=== PATIENT | female | born 1990 | race Caucasian/White ===

== ENCOUNTER → 2016-08-20 | Outpatient (CLI) | payer BC | END | disposition home or self-care (01) | LOC: LABWHC1 08:24 | PROVIDERS: ATTEND Psychiatry & Neurology Neurology | DX: G40.209 Localization-related (focal) (partial) symptomatic epilepsy and epileptic syndromes with complex partial seizures, not intractable, without status epilepticus (principal) | CPT/HCPCS: 36415; 80183 ==

== ENCOUNTER → 2017-11-09 | Outpatient (CLI) | payer BC | LOC: LABWHC1 11:44 | PROVIDERS: ATTEND Psychiatry & Neurology Neurology | DX: G40.209 Localization-related (focal) (partial) symptomatic epilepsy and epileptic syndromes with complex partial seizures, not intractable, without status epilepticus (principal) | CPT/HCPCS: 36415; 80183 ==

== ENCOUNTER → 2020-07-30 | Outpatient (CLI) | payer BC ==
[2020-07-30 14:51] LABS: Basophils # (A) 0 X 10*3/uL (0.00-0.10); Basophils % (A) 0 %; Eosinophils # (A) 0 X 10*3/uL (0.04-0.35); Eosinophils % (A) 0 %; HCT 40.2 % (37.2-46.3); HGB 13.3 g/dL (12.0-15.0); Lymphocytes # (A) 0.97 X 10*3/uL (0.90-5.00); Lymphocytes % (A) 31.1 %; MCHC 33.1 g/dL (32.0-37.0); MCV 93.7 fL (80.0-97.0); Mean Platelet Volume 11.5 fL (9.5-12.2); Monocytes % (A) 9.6 %; Neutrophils # (A) 1.85 X 10*3/uL (1.80-7.70); Neutrophils % (A) 59.3 %; Platelet Count 213 X 10*3/uL (140-440); RBC 4.29 X 10*6/uL (4.10-5.20); RDW 12.8 % (11.5-14.5); WBC 3.12 X 10*3/uL (4.50-10.00)
[2020-07-30 15:07] LABS: African American GFR (CKD) 141.8 (60.0-200.0); Anion Gap 6.3 mmol/L (4.00-12.00); BUN/Creat Ratio 13.33 Ratio (12.00-20.00); Calcium 8.7 mg/dL (8.7-10.3); Carbon Dioxide 25.7 mmol/L (21.6-31.8); Non-African American GFR(CKD) 122.3 (60.0-200.0)
== END | disposition home or self-care (01) ==
LOC: LABWHC1 10:09
PROVIDERS: ATTEND Psychiatry & Neurology Neurology
DX: G40.209 Localization-related (focal) (partial) symptomatic epilepsy and epileptic syndromes with complex partial seizures, not intractable, without status epilepticus (principal)
CPT/HCPCS: 36415; 80048; 80183; 85025

== ENCOUNTER → 2020-10-20 | Outpatient (CLI) | payer BC ==
[2020-10-20 09:27] LABS: Basophils % (A) 0 %; Eosinophils % (A) 0 %; HCT 41.6 % (34.0-46.0); HGB 14.3 gm/dL (11.4-16.0); Lymphocytes % (A) 34 %; MCH 32.4 pg (25.0-35.0); MCHC 34.5 g/dL (31.0-37.0); MCV 94.2 fL (80.0-100.0); Mean Platelet Volume 8.5; Monocytes # (A) 0.2 k/uL (0-1.0); Monocytes % (A) 6 %; Neutrophils # (A) 1.8 k/uL (1.3-7.7); Neutrophils % (A) 58 %; Platelet Count 200 k/uL (150-450); RBC 4.42 m/uL (3.80-5.40); RDW 13.1 % (11.5-15.5); WBC 3.1 k/uL (3.8-10.6)
[2020-10-20 12:12] LABS: Anisocytosis (M) Present; Poikilocytosis (M) Present
[2020-10-20 18:02] LABS: African American GFR (CKD) 134.7 (60.0-200.0); Albumin 4.6 g/dL (3.80-4.90); Albumin/Globulin Ratio 2.09 (1.60-3.17); Anion Gap 7.5 mmol/L (4.00-12.00); BUN/Creat Ratio 15.71 Ratio (12.00-20.00); Calcium 8.9 mg/dL (8.7-10.3); Carbon Dioxide 23.5 mmol/L (21.6-31.8); Globulin 2.2 g/dL (1.6-3.3); Non-African American GFR(CKD) 116.3 (60.0-200.0); Protein, Total 6.8 g/dL (6.2-8.2); Total Bilirubin 0.4 mg/dL (0.3-1.2); Total Protein 6.8 g/dL (6.2-8.2)
[2020-10-22 16:44] LABS: Albumin 4.25 g/dL (3.80-4.90); Gamma Globulin 0.82 g/dL (0.70-1.50)
== END | disposition home or self-care (01) ==
LOC: LABWHC1 08:28
PROVIDERS: ATTEND Internal Medicine Hematology & Oncology
DX: D72.819 Decreased white blood cell count, unspecified (principal)
CPT/HCPCS: 36415; 80053; 82607; 84165; 85025; 86334

== ENCOUNTER → 2020-10-25 | Outpatient (CLI) | payer BC | END | disposition home or self-care (01) | LOC: LABWHC1 08:40 | PROVIDERS: ATTEND Internal Medicine Hematology & Oncology | DX: Z53.9 Procedure and treatment not carried out, unspecified reason (principal) ==

== ENCOUNTER → 2020-11-10 | Outpatient (CLI) | payer BC | END | disposition home or self-care (01) | LOC: LABWHC1 09:46 | PROVIDERS: ATTEND Student in an Organized Health Care Education/Training Program | DX: G40.219 Localization-related (focal) (partial) symptomatic epilepsy and epileptic syndromes with complex partial seizures, intractable, without status epilepticus (principal) | CPT/HCPCS: 36415; 80175 ==

== ENCOUNTER → 2021-02-07 | Outpatient (CLI) | payer BC ==
[2021-02-07 14:53] LABS: African American GFR (CKD) 141.8 (60.0-200.0); Anion Gap 10.4 mmol/L (10.00-18.00); BUN/Creat Ratio 7.83 Ratio (12.00-20.00); Blood Urea Nitrogen 4.7 mg/dL (9.0-27.0); Calcium 9.4 mg/dL (8.7-10.3); Carbon Dioxide 22.6 mmol/L (20.0-27.5); Non-African American GFR(CKD) 122.3 (60.0-200.0); Potassium 3.8 mmol/L (3.5-5.5)
[2021-02-07 15:05] LABS: Basophils # (A) 0 X 10*3/uL (0.00-0.10); Basophils % (A) 0 %; Eosinophils # (A) 0.01 X 10*3/uL (0.04-0.35); Eosinophils % (A) 0.2 %; HCT 40.2 % (37.2-46.3); HGB 13.3 g/dL (12.0-15.0); Lymphocytes # (A) 1.14 X 10*3/uL (0.90-5.00); Lymphocytes % (A) 26.2 %; MCHC 33.1 g/dL (32.0-37.0); MCV 93.7 fL (80.0-97.0); Mean Platelet Volume 11.9 fL (9.5-12.2); Monocytes # (A) 0.34 X 10*3/uL (0.20-1.00); Monocytes % (A) 7.8 %; Neutrophils # (A) 2.84 X 10*3/uL (1.80-7.70); Neutrophils % (A) 65.3 %; Platelet Count 208 X 10*3/uL (140-440); RBC 4.29 X 10*6/uL (4.10-5.20); RDW 12.6 % (11.5-14.5); WBC 4.35 X 10*3/uL (4.50-10.00)
== END | disposition home or self-care (01) ==
LOC: LABWHC1 09:16
PROVIDERS: ATTEND Psychiatry & Neurology Neurology
DX: G40.209 Localization-related (focal) (partial) symptomatic epilepsy and epileptic syndromes with complex partial seizures, not intractable, without status epilepticus (principal)
CPT/HCPCS: 36415; 80048; 80183; 85025

== ENCOUNTER → 2021-03-20 | Outpatient (CLI) | payer BC | END | disposition home or self-care (01) | LOC: LABWHC1 16:22 | PROVIDERS: ATTEND Obstetrics & Gynecology Obstetrics | DX: O99.350 Diseases of the nervous system complicating pregnancy, unspecified trimester (principal); G40.909 Epilepsy, unspecified, not intractable, without status epilepticus; Z3A.00 Weeks of gestation of pregnancy not specified | CPT/HCPCS: 36415; 82105; 82677; 84702; 86336 ==

== ENCOUNTER 2021-08-26 10:49 | Outpatient (CLI) | payer BC ==
[2021-08-26 13:19] VITALS: BP 127/74; PULSE 102; RESP 17; TEMP 97.1
--- NOTE | 2021-08-30 10:03 | P.MSEPDOC ---
Presenting Problems - Arrival Data Date of Arrival on Unit: 08/26/21 Time of Arrival on Unit: 10:49 Mode of Transport: Ambulatory - Complaint OB-Reason for Admission/Chief Complaint: Possible Onset of Labor Comment: pt presents for cramping, spotting, and back pain Medical History - Information : 1 Para: 0 Term: 0 : 0 Abortions: Spontaneous or Elective: 0 Number of Living Children: 0 - Gestational Age Gestational Age by PROMISE (wks/days): 38 Weeks and 5 Days - History Complications: Other Comment: pt has epilepsy Review of Systems - Review of Systems Constitutional: No problems Breast: No problems ENT: No problems Cardiovascular: No problems Respiratory: No problems Gastrointestinal: No problems Genitourinary: No problems Musculoskeletal: No problems Neurological: No problems Skin: No problems Vital Signs - Temperature Temperature: 97.1 F Temperature Source: Temporal Artery Scan - Pulse Right Brachial Pulse Rate: 102 Pulse Assessment Method: Automatic Cuff - Respirations Respiratory Rate: 17 Oxygen Delivery Method: Room Air O2 Sat by Pulse Oximetry: 100 - Blood Pressure Right Arm Blood Pressure: 127/74 Blood Pressure Mean: 91 Blood Pressure Source: Automatic Cuff Medical Screen Scoring - Cervical Exam Dilation (cm): 1.5 Effacement (%): 60 Station: -2 Membranes: Intact - Uterine Contractions Frequency From (mins): 2 Frequency To (mins): 9 Duration From (seconds): 40 Duration To (seconds): 70 Intensity: Mild Resting: Soft to palpation - Assessment - Baby A Baseline FHR: 140 Heart Rate - NICHD Category: Category I (Normal) NST: Reactive Physician Notification - Physician Notified Physician Notified Date: 08/26/21 Physician Notified Time: 11:30 Physician: Cristal Huff New Order Received: Yes - Notification Comment Comment: No cervical change management manager 1 hour, reactive NST Maternal Triage Index - Maternal Triage Index Presenting for scheduled procedure w/no complaint: No - Stat/Priority 1 Stat Priority 1: No - Urgent/Priority 2 Urgent Priority 2: No - Prompt/Priority 3 Prompt Priority 3: Yes Criteria Met for Priority 3: pt presents for cramping, spotting, and back pain, GA 38 5/7 Disposition - Disposition OB Disposition: Triage, Discharge to home, Written follow up instructions reviewed Discharge Date: 08/26/21 Discharge Time: 12:50 I agree with the RN Medical Screening Exam: Yes Case reviewed; plan agreed upon as documented in EMR&OBIX.: Yes Diagnosis: FALSE LABOR AT OR AFTER 37 COMPLETED WEEKS OF GESTATION
== END 2021-08-26 12:50 | disposition home or self-care (01) ==
LOC: FBPOP 10:49
PROVIDERS: ATTEND Obstetrics & Gynecology Obstetrics
DX: O47.1 False labor at or after 37 completed weeks of gestation (principal); O99.353 Diseases of the nervous system complicating pregnancy, third trimester; G40.909 Epilepsy, unspecified, not intractable, without status epilepticus; Z3A.38 38 weeks gestation of pregnancy; Z79.899 Other long term (current) drug therapy
CPT/HCPCS: 59025; 99213

== ENCOUNTER 2021-08-30 05:13 | Inpatient (IN) | payer BC ==
[2021-08-30] MEDS: LACTATED RINGERS 1,000 ML IV SCH ×2 (05:30→06:39)
[2021-08-30] MEDS ORDERED: METHYLERGONOVINE 0.2 MG/ML 1 ML AMP IM PRN (05:34)
[2021-08-30] MEDS ORDERED: OXYTOCIN 10 UNIT/ML 1 ML VIAL IM PRN (05:34)
[2021-08-30] MEDS ORDERED: TERBUTALINE 1 MG/ML VIAL SQ PRN (05:34)
[2021-08-30] MEDS ORDERED: LIDOCAINE 0.5% (PF) 5 MG/ML (50 ML SDV) SQ PRN (05:34)
[2021-08-30] MEDS ORDERED: CARBOPROST TROMETHAMINE 250 MCG/ML 1 ML AMP IM PRN (05:34)
[2021-08-30] MEDS ORDERED: OXYTOCIN 30 UNITS/500 ML NS 30 UNIT in SALINE 1 500ML.BAG IV SCH ×2 (05:45→12:30)
[2021-08-30 06:49] LABS: Basophils % (A) 0 %; Eosinophils # (A) 0.1 k/uL (0-0.7); Eosinophils % (A) 1 %; HCT 34.3 % (34.0-46.0); HGB 11.3 gm/dL (11.4-16.0); Lymphocytes # (A) 1.1 k/uL (1.0-4.8); Lymphocytes % (A) 15 %; MCH 28.9 pg (25.0-35.0); MCV 87.5 fL (80.0-100.0); Mean Platelet Volume 11.3; Monocytes # (A) 0.3 k/uL (0-1.0); Monocytes % (A) 4 %; Neutrophils # (A) 5.6 k/uL (1.3-7.7); Neutrophils % (A) 79 %; Platelet Count 186 k/uL (150-450); RBC 3.92 m/uL (3.80-5.40); RDW 13.7 % (11.5-15.5); WBC 7.1 k/uL (3.8-10.6)
[2021-08-30] MEDS ORDERED: fentaNYL (PF) 50 MCG/ML 5 ML AMP ONE (07:07)
[2021-08-30] MEDS ORDERED: SODIUM CHLORIDE 0.9% 100 ML BAG ONE (07:07)
[2021-08-30] MEDS ORDERED: BUPIVACAINE (PF) 0.25% 30 ML VIAL ONE (07:07)
[2021-08-30] MEDS ORDERED: diphenhydrAMINE 50 MG CAP PO PRN (12:26)
[2021-08-30] MEDS ORDERED: LANOLIN CREAM 5 GM TUBE TOPICAL PRN (12:26)
[2021-08-30] MEDS ORDERED: HYDROCORTISONE 2.5% RECTAL CREAM 30 GM TUBE RECTAL PRN (12:26)
[2021-08-30] MEDS ORDERED: SIMETHICONE 80 MG CHEWABLE PO PRN (12:26)
[2021-08-30] MEDS ORDERED: diphenhydrAMINE 25 MG CAP PO PRN (12:26)
[2021-08-30] MEDS ORDERED: ZOLPIDEM 5 MG TAB PO PRN (12:26)
[2021-08-30] MEDS ORDERED: diphenhydrAMINE 50 MG/ML 1 ML VIAL IVP PRN ×2 (12:26)
[2021-08-30] MEDS ORDERED: ACETAMINOPHEN TAB 325 MG TAB PO PRN (12:26)
[2021-08-30] MEDS ORDERED: BENZOCAINE/MENTHOL SPRAY 1 GM/SPRAY AEROSOL TOPICAL PRN (12:26)
--- NOTE | 2021-08-30 12:34 | P.HPOB ---
History of Present Illness H&P Date: 08/30/21 Chief Complaint: IUP at 39 2/7, active labor This is a 31-year-old 1 para 0 at 39-2/7 weeks that presents to labor and delivery with complaints of regular painful contractions. Patient has been receiving routine care with myself. Patient has a history of epilepsy for which she takes Trileptal and she has been seeing maternal medicine. Growth ultrasounds have been normal. testing has been within normal limits. [facility] did recommend delivery between 39 and 40 weeks. Patient was scheduled for induction later next week. Patient states contractions started through the evening and became regular. Patient presented to labor and delivery and was found to be 4-5 cm. Patient denied loss of fluid or vaginal bleeding. Review of Systems Constitutional: Denies chills, Denies fatigue, Denies fever Ears, nose, mouth and throat: Denies headache Cardiovascular: Reports leg edema Respiratory: Denies dyspnea Gastrointestinal: Denies constipation, Denies diarrhea, Denies nausea, Denies vomiting Genitourinary: Reports Past Medical History Past Medical History: Seizure Disorder History of Any Multi-Drug Resistant Organisms: None Reported Past Surgical History: No Surgical Hx Reported Past Anesthesia/Blood Transfusion Reactions: No Reported Reaction Past Psychological History: Anxiety Smoking Status: Never smoker Past Drug Use History: None Reported Medications and Allergies Home Medications Medication Instructions Recorded Confirmed Type Aspirin [Children's Aspirin] 81 mg PO DAILY 08/26/21 08/30/21 History Famotidine [Pepcid] 10 mg PO DAILY 08/26/21 08/30/21 History Folic Acid 4 mg PO DAILY 08/26/21 08/30/21 History L.acidoph,Paracasei, B.lactis 1 tab PO DAILY 08/26/21 08/30/21 History [Probiotic] OXcarbazepine [Trileptal] 900 mg PO 1300,2200 08/26/21 08/30/21 History Vit No.179/Iron/Folic 1 each PO DAILY 08/26/21 08/30/21 History [ Tablet] Allergies Allergy/AdvReac Type Severity Reaction Status Date / Time No Known Allergies Allergy Verified 08/30/21 05:29 Exam Osteopathic Statement: *. No significant issues noted on an osteopathic structural exam other than those noted in the History and Physical/Consult. Vital Signs Temp Pulse Resp BP Pulse Ox 08/30/21 05:28 96.7 F L 88 16 122/85 100 Intake and Output 08/29/21 08/30/21 08/30/21 22:59 06:59 14:59 Other: # Voids 1 Weight 83.915 kg Targeted physical exam is performed in this date and clinical operations consultant a well-nourished well-developed female in no acute distress, breathing is noted to nonlabored, heart has regular rate and rhythm, abdomen is gravid and appropriate for gestational age, on cervical exam she is 6/90/-1 station amniotomy is p erformed and clear fluid was obtained. heart tones returned be category 1 and she is ollie every 2-3 minutes. Patient did receive an epidural prior to my arrival. Results Result Diagrams: 08/30/21 05:40 Abnormal Lab Results - Last 24 Hours (Table) 08/30/21 Range/Units 05:40 Hgb 11.3 L (11.4-16.0) gm/dL Assessment and Plan (1) Term Current Visit: Yes Status: Acute Code(s): Z34.90 - ENCNTR FOR SUPRVSN OF NORMAL , UNSP, UNSP TRIMESTER SNOMED Code(s): 98327508 Plan: 31-year-old 1 para 0 at 39-2/7 weeks that presents to labor and delivery with complaints of regular painful contractions. Patient was noted to be 4-5 centimeters and was admitted to labor and delivery. Patient requested epidural soon after admission therefore epidural was placed by the anesthesia Department without difficulty. Continue current management, anticipate spontaneous vaginal delivery.
[2021-08-30] MEDS: IBUPROFEN 600 MG TAB PO SCH ×2 (12:37→21:24)
--- NOTE | 2021-08-30 12:38 | P.PROBDLV ---
Vaginal Delivery Note - . Vaginal Delivery Note: Findings; viable female delivered at 1154, weight of 7 lbs. 8 oz., Apgars of 8 and 9 at one and 5 minutes respectively. 31-year-old 1 para 0 at 39-2/7 weeks that presents to labor and delivery with complaints of regular painful contractions. Patient states contractions started over the evening and she presented to labor and delivery around 5 AM this morning. Patient was noted to be 4-5 cm dilated at that time. Patient was admitted to labor and delivery and she soon requested epidural. Epidural was placed without difficulty by the anesthesia department. Patient underwent amniotomy after epidural was placed and clear fluid was obtained. Patient progressed through labor eventually becoming complete. Pitocin augmentation of labor was begun after epidural had been placed. Patient progressed to complete was placed in a modified lithotomy position and began pushing. With excellent maternal effort patient brought the baby down to presentation. bradycardia into the 60s was appreciated. Patient was counseled on the need for vacuum secondary to nonreassuring heart tones, bradycardia. Patient consented along with dad. Vacuum was placed noted to be within the green suction zone with 1 pull the head was delivered without difficulty. The anterior/posterior shoulder were delivered. A spontaneous cry was noted at . The suction was deactivated and delivery of the head. Viable female infant delivered at 1154, weight of 7 lbs. 8 oz., Apgars of 8 and 9 at one and 5 minutes respectively. The umbilical cord was doubly clamped and cut after two- minute delay. The placenta was then delivered spontaneously intact with a three-vessel cord being noted. The uterus was noted to be firm and below the umbilicus at that time. On section the patient's vaginal vault a second-degree midline laceration was appreciated. This was noted high in the posterior vaginal wall it was injected with lidocaine and repaired in the usual fashion with 3-0 repeat. Afterwards there was a small amount of bleeding noted at the hymenal ring therefore a [id number] suture was used to obtain hemostasis. The uterus once again was noted be firm and below the umbilicus. Estimated blood loss 200 mL. On further inspection of the patient's vaginal laceration hemostasis was appreciated. All counts were noted to be correct 2 at the end of the delivery, patient and infant tolerated delivery well and are resting comfortably.
[2021-08-30] MEDS: OXcarbazepine 300 MG TAB PO SCH ×2 (13:50→20:29)
[2021-08-30] MEDS: SENNOSIDES-DOCUSATE SODIUM 1 EACH TAB PO SCH (20:00)
[2021-08-31 01:15] VITALS: RESP 16
[2021-08-31] MEDS: IBUPROFEN 600 MG TAB PO SCH ×3 (06:32→12:57)
[2021-08-31 07:54] LABS: Basophils % (A) 0 %; Eosinophils % (A) 0 %; HGB 11.3 gm/dL (11.4-16.0); Hypochromasia Slight; Lymphocytes # (A) 1.2 k/uL (1.0-4.8); Lymphocytes % (A) 14 %; MCH 28.3 pg (25.0-35.0); MCHC 31.5 g/dL (31.0-37.0); Mean Platelet Volume 10.2; Monocytes # (A) 0.3 k/uL (0-1.0); Monocytes % (A) 4 %; Neutrophils # (A) 6.7 k/uL (1.3-7.7); Neutrophils % (A) 81 %; Platelet Count 189 k/uL (150-450); RDW 13.9 % (11.5-15.5); WBC 8.3 k/uL (3.8-10.6)
[2021-08-31] MEDS: SENNOSIDES-DOCUSATE SODIUM 1 EACH TAB PO SCH (08:14)
[2021-08-31] MEDS ORDERED: PRENATAL VIT-IRON-FOLIC ACID 1 EACH TABLET PO SCH (09:00)
--- NOTE | 2021-08-31 09:46 | P.DS ---
Providers Date of admission: 08/30/21 05:13 Expected date of discharge: 08/31/21 Attending physician: Cristal Huff Primary care physician: Stated None - Discharge Diagnosis(es) (1) Term Current Visit: Yes Status: Acute (2) Status post vaginal delivery Current Visit: Yes Status: Acute (3) Obstetric vaginal laceration with second degree perineal laceration Current Visit: Yes Status: Acute Hospital Course: This is a 31-year-old 1 now para 1 presented to labor and delivery yesterday 08/30 with complaints of regular painful contractions. Patient was noted to be 4-5 cm upon admission. Patient had been receiving routine care with myself which is been complicated by a prior diagnosis of epilepsy for which she was taking Trileptal. A shunt followed with neurology and maternal- medicine throughout the . care has been essentially uncomplicated. Patient was admitted to labor and delivery and did request epidural. Epidural was placed without difficulty by the anesthesia department. Patient progressed through labor eventually becoming complete began pushing. had noted bradycardia down to the 60s therefore patient was counseled on vacuum assist vaginal delivery. Vacuum was applied without difficulty with 1 pull head was delivered followed by the anterior/posterior shoulder. A spontaneous cry was noted at . Viable female delivered at 1154, weight of 7 lbs. 8 oz., Apgars of 8 and 9 at one and 5 minutes respectively. Patient did sustain a second-degree midline vaginal laceration during delivery. This was repaired in usual fashion with 3-0 repeat after instillation of lidocaine. On this day #1 she is feeling well. She states she is ambulating and voiding without difficulty. She states her pain is well-controlled. She denies concerns. She would like discharge home with possible a 24 hours. Patient Condition at Discharge: Good Plan - Discharge Summary Discharge Rx Participant: Yes New Discharge Prescriptions: No Action OXcarbazepine [Trileptal] 900 mg PO 1300,2200 L.acidoph,Paracasei, B.lactis [Probiotic] 1 tab PO DAILY Famotidine [Pepcid] 10 mg PO DAILY Folic Acid 4 mg PO DAILY Vit No.179/Iron/Folic [ Tablet] 1 each PO DAILY Aspirin [Children's Aspirin] 81 mg PO DAILY Discharge Medication List Aspirin [Children's Aspirin] 81 mg PO DAILY 08/26/21 [History] Famotidine [Pepcid] 10 mg PO DAILY 08/26/21 [History] Folic Acid 4 mg PO DAILY 08/26/21 [History] L.acidoph,Paracasei, B.lactis [Probiotic] 1 tab PO DAILY 08/26/21 [History] OXcarbazepine [Trileptal] 900 mg PO 1300,2200 08/26/21 [History] Vit No.179/Iron/Folic [ Tablet] 1 each PO DAILY 08/26/21 [History] Follow up Appointment(s)/Referral(s): Cristal Huff DO [Doctor of Osteopathic Medicine] - 4 Weeks Patient Instructions/Handouts: Vaginal Delivery (DC), Vaginal Delivery (GEN) Discharge Disposition: HOME SELF-CARE
[2021-08-31 13:59] VITALS: BP 124/80; PULSE 89; TEMP 98.4
== END 2021-08-31 13:30 | disposition home or self-care (01) | DRG 806 ==
LOC: 4FBP 05:13
PROVIDERS: ADMIT Obstetrics & Gynecology Obstetrics; ATTEND Obstetrics & Gynecology Obstetrics
PROC: 0KQM0ZZ Repair Perineum Muscle, Open Approach (ICD-10-PCS; principal; 2021-08-30)
PROC: 10D07Z6 Extraction of Products of Conception, Vacuum, Via Natural or Artificial Opening (ICD-10-PCS; principal; 2021-08-30)
DX: O76 Abnormality in fetal heart rate and rhythm complicating labor and delivery (principal); O99.354 Diseases of the nervous system complicating childbirth; Z37.0 Single live birth; O70.1 Second degree perineal laceration during delivery; G40.909 Epilepsy, unspecified, not intractable, without status epilepticus; Z3A.39 39 weeks gestation of pregnancy; Z79.82 Long term (current) use of aspirin; Z79.899 Other long term (current) drug therapy; Z86.59 Personal history of other mental and behavioral disorders
CPT/HCPCS: 85025; 86850; 86900; 86901

== ENCOUNTER → 2021-11-30 | Outpatient (CLI) | payer BC | END | disposition home or self-care (01) | LOC: LABWHC1 09:32 | PROVIDERS: ATTEND Psychiatry & Neurology Neurology | DX: G40.209 Localization-related (focal) (partial) symptomatic epilepsy and epileptic syndromes with complex partial seizures, not intractable, without status epilepticus (principal) | CPT/HCPCS: 36415; 80183 ==

== ENCOUNTER → 2023-03-21 | Outpatient (CLI) | payer BC ==
[2023-03-21 13:50] LABS: ALT 25 U/L (8-44); AST 24 U/L (13-35); Albumin 4.3 g/dL (3.8-4.9); Albumin/Globulin Ratio 1.65 Ratio (1.60-3.17); Alkaline Phosphatase 74 U/L (41-126); BUN/Creat Ratio 15.71 Ratio (12.00-20.00); Calcium 9.4 mg/dL (8.7-10.3); Carbon Dioxide 24.1 mmol/L (21.6-31.8); Chloride 105 mmol/L (96-109); Globulin 2.6 g/dL (1.6-3.3); Glucose 86 mg/dL (70-110); Potassium 4.2 mmol/L (3.5-5.5); Sodium 140 mmol/L (135-145); Total Bilirubin 0.2 mg/dL (0.3-1.2); Total Protein 6.9 g/dL (6.2-8.2)
== END | disposition home or self-care (01) ==
LOC: LABWHC1 08:36
PROVIDERS: ATTEND Psychiatry & Neurology Neurology
DX: G40.209 Localization-related (focal) (partial) symptomatic epilepsy and epileptic syndromes with complex partial seizures, not intractable, without status epilepticus (principal)
CPT/HCPCS: 36415; 80053; 80183

== ENCOUNTER 2023-10-29 13:04 | Day surgery (SDC) | payer BC ==
[2023-10-28 10:11] VITALS: BMI 29.0
[2023-10-29] MEDS ORDERED: LACTATED RINGERS 1,000 ML IV SCH (14:22)
[2023-10-29] MEDS: IV FLUID CONTINUATION 1,000 ML IV ONE (14:22)
[2023-10-29 14:25] VITALS: TEMP 97.8
--- NOTE | 2023-10-29 15:37 | P.PCN ---
Description of Procedure: Preprocedure diagnosis. New onset neurological symptoms. Postprocedure diagnosis. As above. Procedure done. Lumbar puncture and collection of cerebrospinal fluid. Anesthesia. Local infiltration with anesthetics. Continuous pulse ox, EKG, blood pressure and verbal communication was maintained with the patient. Blood loss. None. Indication. Discussed the procedure, alternatives, complications which may include infection, nerve damage, paralysis, aggravation of the symptoms especially bleeding in the spine and posterior dural puncture headache with the patient. The patient understands and questions were answered. Procedure note. After getting concentration in the procedure room in sitting position. Back prepped with chlorhexidine and draped in sterile fashion. After injecting 3 mL of 1% lidocaine subcutaneously, a 22-gauge spinal needle was introduced at L45 interspace. Positive CSF, negative blood, negative paresthesia. CSF color was clear. CSF pressure was not measured. CSF was collected in 4 supplied sterol containers in sequence. Spinal needle was taken out and bandage was applied. Disposition. Patient tolerated the procedure well. No complication. Advised patient to lay flat one-hour postprocedure. The rest of the day today try to lay flat as much as possible. Next 3 days drink lots of fluid especially caffeinated beverages, and avoid constipation cough and doing strenuous physical work. Discharged home in stable condition.
[2023-10-29] MEDS: IV FLUID CONTINUATION 700 ML IV ONE (15:41)
[2023-10-29 16:25] VITALS: BP 118/77; PULSE 82; RESP 18
[2023-10-29 16:38] LABS: Glucose,CSF 46 mg/dL (40-70); Total Protein,CSF 33 mg/dL (12-60)
[2023-10-29 16:41] LABS: Appearance,CSF Clear; CSF Tube Number 4
[2023-10-29 16:57] LABS: Nucleated Cells, CSF 1 u/L (0-5); Red Blood Cell,CSF 5 u/L (0-10)
[2023-10-29 17:04] LABS: ALT 24 U/L (4-34); AST 36 U/L (14-36); Glucose 77 mg/dL (74-99)
[2023-10-30 02:21] LABS: Rheumatoid Factor, Qnt <15 IU/mL (0-15)
[2023-10-30 04:07] LABS: DNA Double-Stranded Negative (Negative)
[2023-10-30 04:08] LABS: Anti-Smith Ab Interp Negative (Negative)
[2023-10-30 11:45] LABS: VDRL, Qualitative CSF Nonreactive (Nonreactive)
[2023-11-02 13:02] LABS: APTT 40 Sec(s) (<43); Dilute Russell Viper Venom 35 Sec(s) (<44); IgG - CSF 1.4 mg/dL (0.0 - 3.4); IgG/Albumin Index (CSF) 0.49 (0.00 - 0.77)
[2023-11-06 19:05] LABS: ANA Pattern Homogenous
== END 2023-10-29 16:32 | disposition home or self-care (01) ==
LOC: ORPAIN 13:04
PROVIDERS: ATTEND Pain Medicine Interventional Pain Medicine
DX: R20.2 Paresthesia of skin
CPT/HCPCS: 62270; 81025; 82040; 82042; 82784; 82945; 82947; 83873; 83916; 84157; 84436; 84443; 84450; 84460; 85613; 85730; 86038; 86039; 86225; 86235; 86431; 86592; 86618; 88108; 89050

== ENCOUNTER → 2023-10-29 | Outpatient (CLI) | payer BC | END | disposition home or self-care (01) | LOC: LABWHC1 12:37 | PROVIDERS: ATTEND Psychiatry & Neurology Neurology | DX: G40.209 Localization-related (focal) (partial) symptomatic epilepsy and epileptic syndromes with complex partial seizures, not intractable, without status epilepticus | CPT/HCPCS: 36415; 82306; 82607 ==

== ENCOUNTER → 2023-11-02 | Outpatient (CLI) | payer BC ==
[2023-11-02 15:52] LABS: C Reactive Protein <0.30 mg/dL (0.00-0.80); Rheumatoid Factor, Qnt <15 IU/mL (0-15)
[2023-11-02 20:27] LABS: DNA Double-Stranded Negative (Negative)
[2023-11-06 19:08] LABS: ANA Pattern Homogenous
== END ==
LOC: LABWHC1 10:40
PROVIDERS: ATTEND Psychiatry & Neurology Neurology
DX: R20.2 Paresthesia of skin (principal); G40.209 Localization-related (focal) (partial) symptomatic epilepsy and epileptic syndromes with complex partial seizures, not intractable, without status epilepticus; Z79.899 Other long term (current) drug therapy
CPT/HCPCS: 36415; 82306; 82607; 82746; 83036; 85652; 86038; 86039; 86140; 86225; 86431

== ENCOUNTER → 2023-11-10 | Outpatient (CLI) | payer BC ==
--- NOTE | 2023-11-10 16:35 | MR ---
INDICATION: Patient age:Female; 33 years old; Reason for study: R20.2 PARESTHESIAS G40.209 EPILEPSY; [facility]. COMPARISON: None. TECHNIQUE: Multi planar, multi sequence imaging was performed through the brain. The patient was then given 8 cc of Gadavist intravenously and multi planar, T1 fat-saturation images were obtained. FINDINGS: The kelley-white junctions, ventricular system, basal cisterns appear unremarkable. Diffusion-weighted imaging shows no evidence of restricted diffusion to suggest acute/subacute infarct. Intracranial art erial flow voids are maintained. Midline structures show no abnormality. The hippocampi appear symmet vineet without atrophy. No suspicious FLAIR signal abnormalities. The susceptibility weighted images do not reveal any evidence for micro-hemorrhage. After administration of gadolinium, no abnormal enhance ment is seen. The bone marrow signal is within normal limits. The globes are unremarkable. Mild mucosal thickening of the inferior right maxillary sinus. Tiny T2 hyperintense likely sebaceous cyst within the left na abby fold. Probably enlarged lymph nodes within the posterior bilateral occipital neck soft tissues (s eries 901, image 33). The largest measures up to 1.0 cm short axis. IMPRESSION: 1. No evidence of intracranial mass, acute/subacute infarct, or abnormal enhancement. 2. Mildly prominent/enlarged posterior bilateral occipital neck soft tissue lymph nodes. May be react solomon versus other etiologies. Consider further evaluation with CT neck with IV contrast. [facility], , 11/10/2023 4:33 PM
== END | disposition home or self-care (01) ==
LOC: RADMRIMAIN 13:49
PROVIDERS: ATTEND Psychiatry & Neurology Neurology
DX: G40.209 Localization-related (focal) (partial) symptomatic epilepsy and epileptic syndromes with complex partial seizures, not intractable, without status epilepticus (principal); R20.2 Paresthesia of skin; R22.1 Localized swelling, mass and lump, neck
CPT/HCPCS: 70553

== ENCOUNTER → 2023-11-27 | Outpatient (CLI) | payer BC ==
--- NOTE | 2023-11-27 12:58 | MM ---
Reason for Exam: Screening (asymptomatic). Baseline mammogram. Patient History: Menarche at age 11. First Full-Term at age 31. Late child-bearing (after 30). Last menstrual period: 11/13/2023 Prior Study Comparison: Patient's first Mammogram. No prior studies available for comparison. Tissue Density: The breasts are extremely dense, which lowers the sensitivity of mammography. Findings: Analyzed By CAD. Right breast: There is no suspicious group of microcalcifications or new suspicious mass. Left breast: There is no suspicious group of microcalcifications or new suspicious mass. Overall Assessment: Negative, BI-RAD 1 Management: Screening Mammogram of both breasts in [address] [facility] will attempt to contact patient to return for supplemental views and ultrasound if indicated. Patient should continue monthly self-breast exams. A clinical breast exam by your physician is recommended on an annual basis. This exam should not preclude additional follow-up of suspicious palpable abnormalities. Note on Jhoana scores and lifetime risk: 1. A Jhoana score greater than 3% is considered moderate risk. If this is the case, consider specialist referral to assess eligibility for a risk reducing agent. 2. If overall lifetime risk for the development of breast cancer is 20% or higher, the patient may qualify for future screening with alternating mammogram and breast MRI. [facility], , 11/27/2023 12:48 PM. Electronically signed and approved by: Kevin Doss DO
== END | disposition home or self-care (01) ==
LOC: RADMAMWWP 07:00
PROVIDERS: ATTEND Family Medicine
CPT/HCPCS: 77063; 77067

== ENCOUNTER → 2023-12-24 | Outpatient (CLI) | payer BC ==
[2023-12-24 16:04] LABS: ALT 25 U/L (8-44); AST 25 U/L (13-35); Albumin 4.3 g/dL (3.8-4.9); Albumin/Globulin Ratio 1.79 Ratio (1.60-3.17); Alkaline Phosphatase 72 U/L (41-126); BUN/Creat Ratio 14.33 Ratio (12.00-20.00); Blood Urea Nitrogen 8.6 mg/dL (9.0-27.0); Calcium 8.9 mg/dL (8.7-10.3); Carbon Dioxide 23.5 mmol/L (21.6-31.8); Chloride 106 mmol/L (96-109); Globulin 2.4 g/dL (1.6-3.3); Glucose 79 mg/dL (70-110); Potassium 4.1 mmol/L (3.5-5.5); Sodium 139 mmol/L (135-145); Total Bilirubin 0.2 mg/dL (0.3-1.2); Total Protein 6.7 g/dL (6.2-8.2)
--- NOTE | 2023-12-27 20:12 | CT ---
EXAMINATION TYPE: CT soft tissue neck w con DATE OF EXAM: 12/24/2023 9:39 AM COMPARISON: None. CLINICAL INDICATION: Female, 33 years old with history of R59.0 LOCALIZED ENLARGED LYMPH NODES, swpll en lymph nodes TECHNIQUE: Axial images at 3 mm thick sections. Reconstructed images in the coronal plane and sagitt al plane are reviewed. Contrast used:100 mL of Isovue 300 with IV Contrast, (none if empty) Oral contrast used: (none if empty) CT DLP: 401.5 mGycm, Automated exposure control for dose reduction was used. FINDINGS: Limited CT sections are obtained the lung apices. The lung apices appear clear. CT neck: The torus tubarius and fossa of Rosenmuller are normal. [employer] spaces are normal. Para nasal sinuses and mastoid air cells are clear. Parotid glands appear normal and symmetrical. Submandibular glands, are normal. Parapharyngeal spac es are normal. Left jugulodigastric lymph node is at the upper limits of normal for size. There is a 1.1 cm right jugulodigastric lymph node. These are above the PVCs marking the neck. There are some sc attered lymph nodes in the posterior neck. No enlarged adenopathy is evident. At the levels marked by the BB is no suspicious underlying masses are evident. This is just below the submandibular glands. The hypopharynx appears within normal limits. Vocal cord level appear symmetrical. Thyroid as visualized is normal. Osseous structures are normal. IMPRESSION: 1. No discrete abnormality at the areas marked by BBs. 2. There is an enlarged right jugulodigastric lymph node 1.1 cm somewhat above the right BB. Left jug ulodigastric node is within normal limits [facility], , 12/27/2023 8:09 PM
== END | disposition home or self-care (01) ==
LOC: RADCTMAIN 08:19
PROVIDERS: ATTEND Otolaryngology
DX: R59.0 Localized enlarged lymph nodes (principal)
CPT/HCPCS: 80053; 80183; 70491; 36415; Q9967

== ENCOUNTER 2024-01-20 08:53 | Day surgery (SDC) | payer BC ==
[2024-01-20 10:04] VITALS: RESP 18
[2024-01-20 10:05] VITALS: TEMP 98.1
[2024-01-20 10:36] VITALS: BP 117/64; PULSE 74
--- NOTE | 2024-01-20 10:38 | US ---
EXAMINATION TYPE: US biopsy lymph node DATE OF EXAM: 01/20/2024 10:16 AM COMPARISON: 12/24/2023 CLINICAL INDICATION:Female, 33 years old with history of R59.0 LOCALIZED ENLARGED LYMPH NODES; , ATTENDING: Dr. Kevin Doss PROCEDURE: Informed consent was obtained. The risks and benefits of the procedure were discussed with the patien t. The site was marked. Timeout procedure was performed Ultrasound imaging demonstrates right jugulodigastric lymph node which does measure within normal walsh its at 11 mm for dislocation. The patient was prepped, draped in the usual sterile fashion, and locally anesthetized with 1% lidoca ine. 3 x 18-gauge core needle biopsies were obtained.. Samples were sent to the pathology department for further analysis. Patient tolerated the procedure without incident and was sent home in stable condition. IMPRESSION: Successful ultrasound guided core biopsy [facility], , 01/20/2024 10:36 AM
== END 2024-01-20 10:40 | disposition home or self-care (01) ==
LOC: RADPROMAIN 08:53
PROVIDERS: ATTEND Otolaryngology
DX: R59.0 Localized enlarged lymph nodes (principal)
CPT/HCPCS: 38505; 76942; 88305; 88341; 88342